=== PATIENT | female | born 1950 | race Caucasian/White ===

== ENCOUNTER 2017-02-04 08:00 | Observation (INO) | payer BC ==
[~2017-02-04] VITALS: Ht 165.1 cm; Wt 66.3 kg
[~2017-02-04 08:00] MED LIST: ACYC800T PO; ASPI-558 PO; BIOT25008 PO; CALC-52 PO; CHOL200026 PO; CYAN200018 PO; CYCL-83 PO; FLUT9.9S NAS; FOLI0.4T2 PO; GLUC1CAP25 PO; LANS30CA50 PO; MAGN100T3 PO; MULT-261 PO; VENL37.59 PO; VIT1TABL73 PO
--- NOTE | 2017-02-04 08:10 | NUR ---
ADMISSION PATIENT ADMITTED TO ROOM 116 AT THIS TIME. PATIENT AMBULATORY. WITH PATIENT ON ARRIVAL. A/OX3. NO S/S OF DISTRESS. PT GIVEN INSTRUCTIONS ON GETTING DRESSED IN GOWN/SOCKS. WILL CONTINUE TO MONITOR.
[2017-02-04 08:21] VITALS: Ht 165.1 cm; Wt 66.3 kg
[2017-02-04 08:28] VITALS: BP 109/65; PULSE 76; RESP 18; TEMP 97; O2SAT 100
[2017-02-04 08:44] LABS: BASOPHILS # (AUTO) 0.1 T/MM3 (0-0.2); EOSINOPHILS # (AUTO) 0.7 T/MM3 (0-0.5); HCT - HEMATOCRIT 41.2 % (36-46); HGB - HEMOGLOBIN 13.5 GM/DL (12-16); IMMATURE GRANULOCYTE # (AUTO) 0.01 T/MM3 (0.00-0.03); IMMATURE GRANULOCYTE % (AUTO) 0.2 % (0.0-0.5); LYMPHOCYTES # (AUTO) 1.8 T/MM3 (1-4.8); LYMPHOCYTES % (AUTO) 35.3 % (23-45); MEAN CORPUSCULAR HGB 31.7 UUG (26-34); MEAN CORPUSCULAR HGB CONC(MCHC 32.8 GM/DL (31-37); MEAN CORPUSCULAR VOLUME 96.7 UM3 (80-100); MEAN PLATELET VOLUME 8.8 UM3 (9.4-12.4); MONOCYTES # (AUTO) 0.4 T/MM3 (0-0.8); NEUTROPHILS #(AUTO)-ABSOLUTE 2.3 T/MM3 (1.8-7.7); NEUTROPHILS % (AUTO) 43.5 % (33-66); RED BLOOD COUNT 4.26 M/MM3 (4.00-5.20); WBC - WHITE BLOOD COUNT 5.2 T/MM3 (4.5-11.0)
[2017-02-04] MEDS ORDERED: [UNRECOGNIZED DRUG - CODE] PO (08:44)
[2017-02-04] MEDS ORDERED: ENZY1TAB5 (08:44)
[2017-02-04 08:55] LABS: ALBUMIN 4.5 G/DL (3.5-5.0); ALBUMIN/GLOBULIN RATIO 1.3 RATIO (1.1-2.2); ALKALINE PHOSPHATASE 54 U/L (38-126); ALT (SGPT) 40 U/L (9-52); ANION GAP 11 MEQ/L (5-15); AST (SGOT) 27 U/L (14-36); BUN/CREATININE RATIO 27 RATIO (6-26); CALCIUM 9.5 MG/DL (8.4-10.2); CHLORIDE 105 MEQ/L (98-107); CO2 - CARBON DIOXIDE 28 MEQ/L (22-30); CREATININE 0.6 MG/DL (0.7-1.2); GLOMERULAR FILTRATION RATE 101; GLUCOSE 77 MG/DL (65-110); MAGNESIUM 2.4 MG/DL (1.6-2.3); POTASSIUM 4.3 MEQ/L (3.6-5); SODIUM 144 MEQ/L (134-144)
[2017-02-04 09:25] LABS: THYROID STIM HORMONE-TSH 2.02 MIU/L (0.47-4.68)
[2017-02-04] MEDS: MEXILETINE 150 MG CAPSULE PO SCH ×3 (09:45→21:39)
[2017-02-04] MEDS ORDERED: PANTOPRAZOLE 40 MG TABLET PO PRN (09:45)
[2017-02-04] MEDS ORDERED: CYCLOBENZAPRINE 10 MG TABLET PO PRN (09:45)
[2017-02-04] MEDS: [UNRECOGNIZED DRUG - OTHER] BUC SCH ×2 (09:47→21:00)
[2017-02-04] MEDS: [UNRECOGNIZED DRUG - OTHER] PO SCH (10:37)
[2017-02-04] MEDS: BALANCE PO SCH (10:37)
[2017-02-04] MEDS: CALCIUM D GLUCARATE PO SCH (10:38)
[2017-02-04] MEDS: [UNRECOGNIZED DRUG - OTHER] PO SCH (10:38)
--- NOTE | 2017-02-04 10:47 | HPPDOC ---
HPI - Adult Date DATE: 02/04/17 TIME: 10:09 General Date of Admission Date of Admission: Feb 04, 2017 at 08:04 Chief Complaint: palpitations History of Present Illness Miladys is a 66 year old female who is well known to Dr. Gallagher with a history of palpitations multiple times weekly with frequent PVCs, and a family history of ischemic cardiac disease who recently had a non-ischemic stress test. Today she is being admitted for observation on antiarrhythmic therapy on Mexiletine 150mg TID. Past Medical History Surgical History General: other (nasal) Reproductive/: other (bladder surgery) Joint: foot (left foot) Current Medications Home Meds Reported Medications Enzymes,Digestive (Digestive Enzyme) 1 Each Tablet, BID 02/04/17 Estrogen,Con/M-Progest Acet (Prempro 0.3 mg-1.5 mg Tablet) 1 Each Tablet, 1 TAB PO BID, #30 TAB 11 Refills 02/04/17 Fluticasone Propionate (Flonase Allergy Relief 50 mcg/actuation Nasal) 9.9 Ml [place].susp, 2 SPRAY LANNY DAILY 02/03/17 Acyclovir (Acyclovir) 800 Mg Tablet, PO 3XDPRN, TAB 02/03/17 Cholecalciferol (Vitamin D3) (Vitamin D-3) 2,000 Unit Capsule, 1 CAP PO DAILY 04/19/15 Cyanocobalamin (Vitamin B-12) (Vitamin B-12) 2,000 Mcg Tablet, 1 TAB PO DAILY, TAB 04/19/15 Lansoprazole (Prevacid) 30 Mg Capsule., 1 CAP PO DAILY Y for ACID REFLUX, CAP 04/19/15 Multivitamin (Multiple Vitamins) 1 Each Tablet, 1 TAB PO DAILY 04/19/15 Magnesium Glycinate (Mag Glycinate) 100 Mg Tablet, 2 TAB PO HS 04/19/15 Folic Acid (Folic Acid) 0.4 Mg Tablet, 1 TAB PO DAILY, TAB 04/19/15 Calcium Carbonate (Calcium) 500 Mg Tablet, 1 TAB PO TID 04/19/15 Biotin (Biotin) 2,500 Mcg Capsule, 5000 MCG PO DAILY 04/19/15 Venlafaxine HCl (Venlafaxine HCl) 37.5 Mg Tablet, 1 TAB PO DAILY 04/19/15 Cyclobenzaprine Hcl (Flexeril) 10 Mg Tablet, 10 MG PO TID Y for PAIN 05/03/14 Vit D3 & K/Berberine Hcl/Hops (Ostera Tablet) 1 Each Tablet, 1 EACH PO BID 05/03/14 Aspirin (Aspir 81) 81 Mg Tablet.dr, 81 MG PO DAILY, TAB 05/03/14 Allergies: Coded Allergies: latex (Verified Allergy, Unknown, SKIN REACTION, 02/04/17) neomycin (Verified Allergy, Unknown, SKIN REACTION, 02/04/17) Family History FOUND: [place] (mother and father), cancer (breast- mother) Vaccines FALL 2015 No Social History Smoking Status: Never smoker Substance Use Type: does not use Alcohol Intake: none Marital Status: Sexuality: male partner Housing: house Current Occupational Status: employed Advance Directives: No DPOA for Healthcare Only Review of Systems Constitutional: DENIES: anorexia, chills, dizziness, fatigue, fever, syncope, weakness Eyes Vision: DENIES: double vision ENMT Balance: DENIES: vertigo Sinuses: NOT FOUND: rhinorrhea Mouth/Throat: DENIES: sore throat Cardiovascular DENIES: chest pain, dyspnea on exertion, murmur, orthopnea Rhythm/Rate: palpitations Vascular: DENIES: pedal edema Pulmonary Respiratory: DENIES: cough, sputum GI Upper Abdomen: DENIES: nausea, vomiting Lower Abdomen: constipation, DENIES: diarrhea General: DENIES: dysuria Integumentary Skin: DENIES: rash, sores Neurological General: DENIES: headache, numbness, syncope, weakness All Other Systems All Other Systems: Reviewed (remainder of 10-point ROS Neg.) Physical Exam General General Nourishment: well nourished, well developed, apparent age Vital Signs Vital Signs Date Time Temp Pulse Resp B/P Pulse Ox O2 Delivery O2 Flow Rate FiO2 02/04/17 08:28 97.0 76 18 109/65 100 Room Air Height (Feet): 5 Height (Inches): 5.00 Telemetry Rhythm: Sinus Rhythm Telemetry Ectopy: PVC ENMT Brief: FOUND: mucosa moist Neck Brief: NOT FOUND: JVD, carotid bruits Respiratory Brief: FOUND: clear all stevenson, equal bilaterally, NOT FOUND: rales , wheezes Cardiovascular (brief) Cardiac Brief: FOUND: murmur (1/6), regular rate, regular rhythm, NOT FOUND: click, gallop, pedal edema Abdomen (brief) Abdominal Brief: FOUND: BS normo active x4, soft, NOT FOUND: tender Integumentary (brief) Integumentary Brief: FOUND: dry, pink, warm Neurologic RN Documented GCS Eye Opening: Verbal: Motor: Total: Psychiatric (brief) FOUND: alert, attentive, oriented Laboratory Laboratory Tests Test 02/04/17 08:28 White Blood Count 5.2T/MM3 Red Blood Count 4.26M/MM3 Hemoglobin 13.5GM/DL Hematocrit 41.2% Mean Corpuscular Volume 96.7UM3 Mean Corpuscular Hemoglobin 31.7UUG Mean Corpuscular Hemoglobin Concent 32.8GM/DL RDW Standard Deviation 44.7FL Platelet Count 265T/MM3 Mean Platelet Volume 8.8UM3 Immature Granulocyte % (Auto) 0.2% Neutrophils (%) (Auto) 43.5% Lymphocytes (%) (Auto) 35.3% Monocytes (%) (Auto) 7.0% Eosinophils (%) (Auto) 13.0% Basophils (%) (Auto) 1.0% Absolute Immature Granulocyte (auto 0.01T/MM3 Absolute Neutrophils (auto) 2.3T/MM3 Absolute Lymphocytes (auto) 1.8T/MM3 Absolute Monocytes (auto) 0.4T/MM3 Absolute Eosinophils (auto) 0.7T/MM3 Absolute Basophils (auto) 0.1T/MM3 Turbidity < 20 Sodium Level 144MEQ/L Potassium Level 4.3MEQ/L Chloride Level 105MEQ/L Carbon Dioxide Level 28MEQ/L Anion Gap 11MEQ/L Blood Urea Nitrogen 16.0MG/DL Creatinine 0.6MG/DL Glomerular Filtration Rate Calc 101 BUN/Creatinine Ratio 27RATIO Glucose Level 77MG/DL Calculated Osmolality 277MOSM/KG Calcium Level 9.5MG/DL Magnesium Level 2.4MG/DL Total Bilirubin 0.80MG/DL Icterus Index < 2 Aspartate Amino Transf (AST/SGOT) 27U/L Alanine Aminotransferase (ALT/SGPT) 40U/L Alkaline Phosphatase 54U/L Total Protein 8.0G/DL Albumin 4.5G/DL Globulin 3.5G/DL Albumin/Globulin Ratio 1.3RATIO Thyroid Stimulating Hormone (TSH) 2.02MIU/L Chemistry Specimen Hemolysis < 15 Laboratory Tests Test 02/04/17 08:28 White Blood Count 5.2T/MM3 Red Blood Count 4.26M/MM3 Hemoglobin 13.5GM/DL Hematocrit 41.2% Mean Corpuscular Volume 96.7UM3 Mean Corpuscular Hemoglobin 31.7UUG Mean Corpuscular Hemoglobin Concent 32.8GM/DL RDW Standard Deviation 44.7FL Platelet Count 265T/MM3 Mean Platelet Volume 8.8UM3 Immature Granulocyte % (Auto) 0.2% Neutrophils (%) (Auto) 43.5% Lymphocytes (%) (Auto) 35.3% Monocytes (%) (Auto) 7.0% Eosinophils (%) (Auto) 13.0% Basophils (%) (Auto) 1.0% Absolute Immature Granulocyte (auto 0.01T/MM3 Absolute Neutrophils (auto) 2.3T/MM3 Absolute Lymphocytes (auto) 1.8T/MM3 Absolute Monocytes (auto) 0.4T/MM3 Absolute Eosinophils (auto) 0.7T/MM3 Absolute Basophils (auto) 0.1T/MM3 Turbidity < 20 Sodium Level 144MEQ/L Potassium Level 4.3MEQ/L Chloride Level 105MEQ/L Carbon Dioxide Level 28MEQ/L Anion Gap 11MEQ/L Blood Urea Nitrogen 16.0MG/DL Creatinine 0.6MG/DL Glomerular Filtration Rate Calc 101 BUN/Creatinine Ratio 27RATIO Glucose Level 77MG/DL Calculated Osmolality 277MOSM/KG Calcium Level 9.5MG/DL Magnesium Level 2.4MG/DL Total Bilirubin 0.80MG/DL Icterus Index < 2 Aspartate Amino Transf (AST/SGOT) 27U/L Alanine Aminotransferase (ALT/SGPT) 40U/L Alkaline Phosphatase 54U/L Total Protein 8.0G/DL Albumin 4.5G/DL Globulin 3.5G/DL Albumin/Globulin Ratio 1.3RATIO Thyroid Stimulating Hormone (TSH) 2.02MIU/L Chemistry Specimen Hemolysis < 15 EKG SR Assessment & Plan Problems: (1) Ventricular premature depolarization Status: Acute Assessment & Plan: symptomatic and frequent. Start Mexiletine 150mg TID. Monitor telemetry and repeat EKG in am (2) Family history of ischemic heart disease and other diseases of the circulatory system Status: Chronic Assessment & Plan: recent non-ischemic stress test Plan/Intensity of Service admit for observation on antiarrhythmic therapy on Mexiletine 150mg TID. Code Status Full Code Hospital Course Summary Disclaimer The hospital course summary below is not to be considered part of the above Progress Note. ALEJANDRO GIORDANO APRN Feb 04, 2017 10:14
[2017-02-04] MEDS: VENLAFAXINE 37.5 MG PO SCH (10:50)
[2017-02-04] MEDS ORDERED: ACETAMINOPHEN 325 MG SUPPOSITORY RECTALLY PRN (14:15)
[2017-02-04] MEDS ORDERED: ACETAMINOPHEN 325 MG TABLET PO PRN (14:15)
[2017-02-04] MEDS ORDERED: PRN ORDERS MC (14:15)
[2017-02-04] MEDS ORDERED: MILK OF MAGNESIA 30 ML SUSP PO PRN (14:15)
[2017-02-04] MEDS ORDERED: NITROGLYCERIN 0.4 MG SUBLINGUAL TABLET SL PRN (14:15)
[2017-02-04] MEDS ORDERED: BISACODYL 10 MG SUPPOSITORY RECTALLY PRN (14:15)
[2017-02-04] MEDS ORDERED: MAG-AL + SIM LIQUID 30 ML UDC PO PRN (14:15)
[2017-02-04] MEDS: CALCIUM 500 MG TABLET PO SCH ×2 (15:31→21:39)
[2017-02-04] MEDS: ACYCLOVIR 800 MG PO SCH ×2 (15:31→21:00)
[2017-02-04 17:47] VITALS: BP 116/65; PULSE 71; RESP 18; TEMP 97.1; O2SAT 96
[2017-02-04] MEDS ORDERED: ESTROGEN CON PO SCH (21:00)
[2017-02-04] MEDS ORDERED: M PROGEST ACET PO SCH (21:00)
[2017-02-04] MEDS ORDERED: MAGNESIUM GLYCINATE PO SCH (22:00)
[2017-02-05 00:30] VITALS: BP 104/62; PULSE 66; RESP 12; TEMP 97.1; O2SAT 98
--- NOTE | 2017-02-05 05:35 | NUR ---
SHIFT SUMMARY PATIENT IS ALERT AND ORIENTED X3 THIS SHIFT. VITAL SIGNS ARE STABLE ON ROOM AIR. PATIENT IS UP AT [place]KHA IN ROOM WITHOUT DIFFICULTY. PATIENT DENIES ANY PAIN THIS SHIFT. PATIENT HAS RESTED QUIETLY MOST OF THE NIGHT. WILL CONTINUE TO MONITOR.
[2017-02-05 06:28] LABS: ANION GAP 8 MEQ/L (5-15); BUN/CREATININE RATIO 24 RATIO (6-26); CALCIUM 9.5 MG/DL (8.4-10.2); CHLORIDE 106 MEQ/L (98-107); CO2 - CARBON DIOXIDE 28 MEQ/L (22-30); CREATININE 0.7 MG/DL (0.7-1.2); GLOMERULAR FILTRATION RATE 84; GLUCOSE 96 MG/DL (65-110); MAGNESIUM 2.1 MG/DL (1.6-2.3); POTASSIUM 4.3 MEQ/L (3.6-5); SODIUM 142 MEQ/L (134-144)
[2017-02-05 08:21] VITALS: BP 123/65; PULSE 81; RESP 18; O2SAT 95
[2017-02-05 08:25] VITALS: PULSE 81; RESP 18
[2017-02-05] MEDS: MEXILETINE 150 MG CAPSULE PO SCH (08:30)
[2017-02-05] MEDS: ACYCLOVIR 800 MG PO SCH (08:32)
[2017-02-05] MEDS: VENLAFAXINE 37.5 MG PO SCH (08:33)
[2017-02-05] MEDS: [UNRECOGNIZED DRUG - OTHER] PO SCH (08:34)
[2017-02-05] MEDS: [UNRECOGNIZED DRUG - OTHER] PO SCH (08:34)
[2017-02-05] MEDS: BALANCE PO SCH (08:34)
[2017-02-05] MEDS: CALCIUM D GLUCARATE PO SCH (08:35)
[2017-02-05] MEDS: CALCIUM 500 MG TABLET PO SCH (08:38)
[2017-02-05] MEDS: [UNRECOGNIZED DRUG - OTHER] BUC SCH (08:38)
[2017-02-05] MEDS ORDERED: ASPIRIN *EC* 81mg TABLET PO SCH (09:00)
[2017-02-05] MEDS ORDERED: FLUTICASONE NASAL SPRAY 50 MCG NAS SCH (09:00)
[2017-02-05] MEDS ORDERED: MULTIVITAMIN PLAIN TABLET PO SCH (09:00)
[2017-02-05] MEDS ORDERED: CYANOCOBALAMIN (B-12) 500mcg TABLET PO SCH (09:00)
[2017-02-05] MEDS ORDERED: FOLIC ACID 1 MG TABLET PO SCH (09:00)
[2017-02-05] MEDS ORDERED: FLUTICASONE 50 MCG EA NOSTRIL SCH (09:00)
[2017-02-05] MEDS ORDERED: MEXI150C2 PO (11:12)
--- NOTE | 2017-02-05 11:21 | DSPDOC ---
General Date Date DATE: 02/05/17 TIME: 11:14 Attending Physician Vincent Gallagher MD Admitting Physician Vincent Gallagher MD Consulting Physician Admitting Diagnosis I49.3 VENTRICULAR PREMATURE DEPOLARIZATION Discharge Diagnosis I49.3 Laboratory Laboratory Tests Test 02/04/17 08:28 02/05/17 05:09 White Blood Count 5.2T/MM3 Red Blood Count 4.26M/MM3 Hemoglobin 13.5GM/DL Hematocrit 41.2% Mean Corpuscular Volume 96.7UM3 Mean Corpuscular Hemoglobin 31.7UUG Mean Corpuscular Hemoglobin Concent 32.8GM/DL RDW Standard Deviation 44.7FL Platelet Count 265T/MM3 Mean Platelet Volume 8.8UM3 Immature Granulocyte % (Auto) 0.2% Neutrophils (%) (Auto) 43.5% Lymphocytes (%) (Auto) 35.3% Monocytes (%) (Auto) 7.0% Eosinophils (%) (Auto) 13.0% Basophils (%) (Auto) 1.0% Absolute Immature Granulocyte (auto 0.01T/MM3 Absolute Neutrophils (auto) 2.3T/MM3 Absolute Lymphocytes (auto) 1.8T/MM3 Absolute Monocytes (auto) 0.4T/MM3 Absolute Eosinophils (auto) 0.7T/MM3 Absolute Basophils (auto) 0.1T/MM3 Turbidity < 20 < 20 Sodium Level 144MEQ/L 142MEQ/L Potassium Level 4.3MEQ/L 4.3MEQ/L Chloride Level 105MEQ/L 106MEQ/L Carbon Dioxide Level 28MEQ/L 28MEQ/L Anion Gap 11MEQ/L 8MEQ/L Blood Urea Nitrogen 16.0MG/DL 17.0MG/DL Creatinine 0.6MG/DL 0.7MG/DL Glomerular Filtration Rate Calc 101 84 BUN/Creatinine Ratio 27RATIO 24RATIO Glucose Level 77MG/DL 96MG/DL Calculated Osmolality 277MOSM/KG 275MOSM/KG Calcium Level 9.5MG/DL 9.5MG/DL Magnesium Level 2.4MG/DL 2.1MG/DL Total Bilirubin 0.80MG/DL Icterus Index < 2 < 2 Aspartate Amino Transf (AST/SGOT) 27U/L Alanine Aminotransferase (ALT/SGPT) 40U/L Alkaline Phosphatase 54U/L Total Protein 8.0G/DL Albumin 4.5G/DL Globulin 3.5G/DL Albumin/Globulin Ratio 1.3RATIO Thyroid Stimulating Hormone (TSH) 2.02MIU/L Chemistry Specimen Hemolysis < 15 < 15 Laboratory Tests Test 02/04/17 08:28 02/05/17 05:09 White Blood Count 5.2T/MM3 (4.5-11.0) Red Blood Count 4.26M/MM3 (4.00-5.20) Hemoglobin 13.5GM/DL (12-16) Hematocrit 41.2% (36-46) Mean Corpuscular Volume 96.7UM3 (80-100) Mean Corpuscular Hemoglobin 31.7UUG (26-34) Mean Corpuscular Hemoglobin Concent 32.8GM/DL (31-37) RDW Standard Deviation 44.7FL (36.9-50.2) Platelet Count 265T/MM3 (130-400) Mean Platelet Volume 8.8UM3 (9.4-12.4) Immature Granulocyte % (Auto) 0.2% (0.0-0.5) Neutrophils (%) (Auto) 43.5% (33-66) Lymphocytes (%) (Auto) 35.3% (23-45) Monocytes (%) (Auto) 7.0% (0-9.0) Eosinophils (%) (Auto) 13.0% (0-4) Basophils (%) (Auto) 1.0% (0-2) Absolute Immature Granulocyte (auto 0.01T/MM3 (0.00-0.03) Absolute Neutrophils (auto) 2.3T/MM3 (1.8-7.7) Absolute Lymphocytes (auto) 1.8T/MM3 (1-4.8) Absolute Monocytes (auto) 0.4T/MM3 (0-0.8) Absolute Eosinophils (auto) 0.7T/MM3 (0-0.5) Absolute Basophils (auto) 0.1T/MM3 (0-0.2) Turbidity < 20 (0-20) < 20 (0-20) Sodium Level 144MEQ/L (134-144) 142MEQ/L (134-144) Potassium Level 4.3MEQ/L (3.6-5) 4.3MEQ/L (3.6-5) Chloride Level 105MEQ/L (98-107) 106MEQ/L (98-107) Carbon Dioxide Level 28MEQ/L (22-30) 28MEQ/L (22-30) Anion Gap 11MEQ/L (5-15) 8MEQ/L (5-15) Blood Urea Nitrogen 16.0MG/DL (7-17) 17.0MG/DL (7-17) Creatinine 0.6MG/DL (0.7-1.2) 0.7MG/DL (0.7-1.2) Glomerular Filtration Rate Calc 101 84 BUN/Creatinine Ratio 27RATIO (6-26) 24RATIO (6-26) Glucose Level 77MG/DL (65-110) 96MG/DL (65-110) Calculated Osmolality 277MOSM/KG (261-280) 275MOSM/KG (261-280) Calcium Level 9.5MG/DL (8.4-10.2) 9.5MG/DL (8.4-10.2) Magnesium Level 2.4MG/DL (1.6-2.3) 2.1MG/DL (1.6-2.3) Total Bilirubin 0.80MG/DL (0.20-1.30) Icterus Index < 2 (0-7) < 2 (0-7) Aspartate Amino Transf (AST/SGOT) 27U/L (14-36) Alanine Aminotransferase (ALT/SGPT) 40U/L (9-52) Alkaline Phosphatase 54U/L (38-126) Total Protein 8.0G/DL (6.3-8.2) Albumin 4.5G/DL (3.5-5.0) Globulin 3.5G/DL (2.4-3.6) Albumin/Globulin Ratio 1.3RATIO (1.1-2.2) Thyroid Stimulating Hormone (TSH) 2.02MIU/L (0.47-4.68) Chemistry Specimen Hemolysis < 15 (0-25) < 15 (0-25) History of Present Illness Miladys is a 66 year old female who is well known to Dr. Gallagher with a history of palpitations multiple times weekly with frequent PVCs, and a family history of ischemic cardiac disease who recently had a non-ischemic stress test. Today she is being admitted for observation on antiarrhythmic therapy on Mexiletine 150mg TID. Objective Vital Signs Vital signs Vital Signs 02/05/17 02/05/17 02/05/17 00:30 08:21 08:25 Temp 97.1 Pulse 66 81 81 Resp 12 18 18 B/P 104/62 123/65 Pulse Ox 98 95 O2 Delivery Room Air Room Air Telemetry Rhythm: Sinus Rhythm Telemetry Ectopy: PVC Height (Feet): 5 Height (Inches): 5.00 Weight (Kilograms): 66.300 General Alert, Orientated x 3, Cooperative ENMT (Brief) mucosa moist Neck (Brief) NOT FOUND: JVD, carotid bruits Respiratory (Brief) clear all stevenson, equal bilaterally, NOT FOUND: rales, wheezes Cardiovascular (Brief) murmur (1/6), regular rate, regular rhythm, NOT FOUND: click, gallop, pedal edema, rub Abdomen (Brief) BS normo active x4, soft Integumentary (Brief) dry, pink, warm Psychiatric (Brief) alert, attentive, oriented Laboratory Laboratory Laboratory Tests 02/05/17 05:09 EKG SR, QT/QTc 435/448 Medications Current Medications Acyclovir (Zovirax) 800 mg TID PO Last administered on 02/05/17 08:32; Start 02/04/17 at 15:00 Aspirin (Ecotrin) 81 mg DAILY PO ; Start 02/05/17 at 09:00 Calcium Carbonate (Calcium) 500 mg TID PO Last administered on 02/04/17 21:39 ; Start 02/04/17 at 15:00 Cyanocobalamin (Vit. B-12) 2,000 mcg DAILY PO ; Start 02/05/17 at 09:00 Cyclobenzaprine HCl (Flexeril) 10 mg TID PRN PO PAIN; Start 02/04/17 at 09:45 Fluticasone Propionate (Flonase) 2 spray DAILY LANNY ; Start 02/05/17 at 09:00; Stop 02/05/17 at 09:00; Status DC Folic Acid (Folate) 0.4 mg DAILY PO ; Start 02/05/17 at 09:00; Stop 02/05/17 at 09:00; Status DC Pantoprazole Sodium (Protonix) 40 mg DAILY PRN PO ACID REFLUX; Start 02/04/17 at 09:45 Non-Formulary Medication 2 tab HS PO ; Start 02/04/17 at 22:00; Stop 02/04/17 at 22:00; Status DC Multivitamins Therapeutic (Theragran) 1 tab DAILY PO ; Start 02/05/17 at 09:00 Miscellaneous Medication (May use PRN orders) PRN PRN MC ; Start 02/04/17 at 14:15 Magnesium Hydroxide (Mom) 30 ml DAILY PRN PO CONSTIPATION; Start 02/04/17 at 14 :15 Bisacodyl (Dulcolax) 10 mg DAILY PRN RECTALLY CONSTIPATION; Start 02/04/17 at 14:15 Al Hydroxide/Mg Hydroxide (Maalox) 30 ml Q3H PRN PO INDIGESTION; Start at 14:15 Acetaminophen (Tylenol Regular Strength) 1-2 TABS PO Q5H PRN PO DISCOMFORT Last administered on 02/04/17t 14:13; Start 02/04/17 at 14:15 Acetaminophen (Tylenol Suppository) 1-2 SUPPOSITORY PER RECTUM Q5H PRN RECTALLY DISCOMFORT; Start 02/04/17 at 14:15 Nitroglycerin (Nitrostat) 0.4 mg Q5M PRN SL CHEST PAIN; Start 02/04/17 at 14:15 Mexiletine HCl (Mexitil) 150 mg TIDWM PO ; Start 02/05/17 at 12:00 Venlafaxine HCl (Effexor) 37.5 mg WB PO ; Start 02/06/17 at 08:00 Hospital Course She was admitted for observation on antiarrhythmic therapy on Mexiletine 150mg TID. She reports no adverse effects, EKG and Telemetry are unremarkable. Problems: (1) Ventricular premature depolarization Status: Acute (2) Family history of ischemic heart disease and other diseases of the circulatory system Status: Chronic Code Status Full Code Home Meds Active Scripts Mexiletine HCl (Mexiletine HCl) 150 Mg Capsule, 150 MG PO TIDWM for 30 Days, # 90 CAP 11 Refills Prov:ALEJANDRO GIORDANO SILO TENDER 02/05/17 Reported Medications Enzymes,Digestive (Digestive Enzyme) 1 Each Tablet, BID 02/04/17 Estrogen,Con/M-Progest Acet (Prempro 0.3 mg-1.5 mg Tablet) 1 Each Tablet, 1 TAB PO BID, #30 TAB 11 Refills 02/04/17 Fluticasone Propionate (Flonase Allergy Relief 50 mcg/actuation Nasal) 9.9 Ml [place].susp, 2 SPRAY LANNY DAILY 02/03/17 Acyclovir (Acyclovir) 800 Mg Tablet, PO 3XDPRN, TAB 02/03/17 Cholecalciferol (Vitamin D3) (Vitamin D-3) 2,000 Unit Capsule, 1 CAP PO DAILY 04/19/15 Cyanocobalamin (Vitamin B-12) (Vitamin B-12) 2,000 Mcg Tablet, 1 TAB PO DAILY, TAB 04/19/15 Lansoprazole (Prevacid) 30 Mg Capsule.dr, 1 CAP PO DAILY Y for ACID REFLUX, CAP 04/19/15 Multivitamin (Multiple Vitamins) 1 Each Tablet, 1 TAB PO DAILY 04/19/15 Magnesium Glycinate (Mag Glycinate) 100 Mg Tablet, 2 TAB PO HS 04/19/15 Folic Acid (Folic Acid) 0.4 Mg Tablet, 1 TAB PO DAILY, TAB 04/19/15 Calcium Carbonate (Calcium) 500 Mg Tablet, 1 TAB PO TID 04/19/15 Biotin (Biotin) 2,500 Mcg Capsule, 5000 MCG PO DAILY 04/19/15 Venlafaxine HCl (Venlafaxine HCl) 37.5 Mg Tablet, 1 TAB PO DAILY 04/19/15 Cyclobenzaprine Hcl (Flexeril) 10 Mg Tablet, 10 MG PO TID Y for PAIN 05/03/14 Vit D3 & K/Berberine Hcl/Hops (Ostera Tablet) 1 Each Tablet, 1 EACH PO BID 05/03/14 Aspirin (Aspir 81) 81 Mg Tablet., 81 MG PO DAILY, TAB 05/03/14 Discharge Disposition Discharged to home in good and stable condition in the care of herself. RX for mexiletine 150mg TID transmitted to ALEJANDRO Augustin APRN Feb 05, 2017 11:18
--- NOTE | 2017-02-05 11:51 | NUR ---
DISCHARGE INSTRUCTIONS PATIENT IS ALERT AND ORIENTED X3. PATIENT VITALS ARE STABLE AND PATIENT IS ON ROOM AIR. PATIENT DENIES CP, NAUSEA, AND SOA. DISCHARGE INSTRUCTIONS INCLUDE: ACTIVITY, DI FOR MEXILETINE, FOLLOW UP APPOINTMENT, REASONS TO CALL DOCTOR, NEW MEDICATIONS, CONTINUED MEDICATIONS. PERSONAL BELONGINGS RETURNED AND ID BAND REMOVED. [facility] DISCONTINUED. PATIENT AMBULATED TO FRONT ENTRANCE WITH NURSE. PATIENT TRANSPORTED HOME FOR SELF CARE BY .
--- NOTE | 2017-02-05 11:52 | NUR ---
CM CM IN TO VISIT PATIENT, SHE IS DRESSED AND READY TO LEAVE HOSPITAL WITH . NO DISCHARGE CONCERNS. CM CONTACT INFORMATION GIVEN. Addendum: 02/05/17 at 1152 by KENN DOHERTY RN Amended: Links added.
[2017-02-05] MEDS ORDERED: MEXILETINE 150 MG CAPSULE PO SCH (12:00)
--- NOTE | 2017-02-05 12:28 | NUR ---
DISCHARGE PATIENT AMBULATED TO FRONT ENTRANCE WITH NURSING STAFF AT THIS TIME. PATIENT TRANSPORTED HOME FOR SELF CARE BY . Addendum: 02/05/17 at 1239 by MALORIE SCOTT RN THIS NOTE ADDED BY MISTAKE. WRONG PATIENT. ANNA ACEVES
[2017-02-06] MEDS ORDERED: VENLAFAXINE 37.5 MG PO SCH (08:00)
--- NOTE | 2017-02-10 14:02 | NUR ---
CM THIS CM PLACED FOLLOW UP DISCHARGE CALL. PT REPORTS SHE IS DOING GREAT. PT DENIES NEEDS, QUESTIONS OR CONCERNS.
== END 2017-02-05 11:51 | disposition home or self-care (01) ==
LOC: SRG 08:04
PROVIDERS: ADMIT Internal Medicine Cardiovascular Disease; ATTEND Internal Medicine Cardiovascular Disease
DX: I49.3 Ventricular premature depolarization (principal); Z82.49 Family history of ischemic heart disease and other diseases of the circulatory system; Z79.82 Long term (current) use of aspirin; Z79.899 Other long term (current) drug therapy; Z79.890 Hormone replacement therapy
CPT/HCPCS: 36415; 80048; 80053; 83735; 84439; 84443; 85025; 93005; 99218